=== PATIENT | male | born 1980 | race Caucasian/White ===

== ENCOUNTER 2021-08-17 21:42 | Emergency (ER) | payer SELFPAY ==
[~2021-08-17] VITALS: Ht 182.9 cm; Wt 136.1 kg
[2021-08-17 22:19] VITALS: BP 159/98
--- NOTE | 2021-08-17 22:33 | NUR ---
Dr. Taveras examining patient.
[2021-08-17 22:48] VITALS: BP 159/98
--- NOTE | 2021-08-17 22:49 | NUR ---
PATIENT BIB [facility] POLICE DEPT. PATIENT EXAMINED BY DR. PARKER. PATIENT MEDICALLY CLEARED AND RELEASED IN CUSTODY IN STABLE CONDITION. ORIGINAL PRE-BOOK FORM GIVEN TO OFFICER JANINE.
== END 2021-08-17 22:49 ==
LOC: MED 21:42
DX: F10.10 Alcohol abuse, uncomplicated (principal); Z02.89 Encounter for other administrative examinations
CPT/HCPCS: 99283